=== PATIENT | male | born 1990 ===

== ENCOUNTER 2024-08-04 22:11 | Outpatient (REF) | payer BC, SELFPAY ==
[2024-08-07 13:07] LABS: Chlamydia Result Negative (Negative); GC Result Negative (Negative)
== END 2024-08-04 22:12 | disposition home or self-care (01) ==
LOC: LBN 22:11
PROVIDERS: Visit Provider Physician Assistant Medical
DX: Z11.3 Encounter for screening for infections with a predominantly sexual mode of transmission (principal)
CPT/HCPCS: 87491; 87591